=== PATIENT | male | born 1995 | race Caucasian/White ===

== ENCOUNTER 2016-07-07 10:53 | Emergency (ER) | payer OTHER ==
[~2016-07-07] VITALS: Ht 177.8 cm; Wt 145.1 kg
[2016-07-07 11:05] VITALS: BP_SYST 144
--- NOTE | 2016-07-07 11:10 | NUR ---
Patient to ER bed 3 to gown for evaluation. Side rails up. Report given to Dariela WALDRON.
--- NOTE | 2016-07-07 11:29 | NUR ---
care endorsed to Marta WALDRON
--- NOTE | 2016-07-07 11:30 | NUR ---
pt to er aaaox4 c/o lower back pain since , states has gotten worse since past month, pain 6/10 non radiating, denies sob, denies chespt pain, denies n/v/d, denies headache, states he got X Ray done in [place] that showed nothing, but the pain has not resolved with pain meds
--- NOTE | 2016-07-07 11:40 | NUR ---
dr. osorio at bedside examining the pt.
[2016-07-07] MEDS ORDERED: KETOROLAC TROMETHAMINE 60 MG/2 ML VIAL IM ONE (12:00)
[2016-07-07 12:10] VITALS: BP_SYST 131
--- NOTE | 2016-07-07 12:10 | NUR ---
Patient given written and verbal discharge instructions and verbalizes understanding. ER MD dr. osorio discussed with patient the results and treatment provided. Patient in stable condition. ID arm band removed. Rx of norco robaxin motrin given. Patient educated on pain management and to follow up with PMD. Pain Scale 0/10 Opportunity for questions provided and answered.
== END 2016-07-07 12:10 | disposition home or self-care (01) ==
LOC: SED 11:42
DX: M54.5 Low back pain (principal)
CPT/HCPCS: 96372; 99283; J1885

== ENCOUNTER 2016-08-06 11:10 | Emergency (ER) | payer MEDICAID, OTHER ==
[~2016-08-06] VITALS: Ht 177.8 cm; Wt 149.7 kg
[2016-08-06 11:28] VITALS: BP 142/73; PULSE 60; RESP 16; TEMP 98.2; O2SAT 98
--- NOTE | 2016-08-06 11:39 | NUR ---
Patient to ER bed 1 to gown for evaluation. Side rails up. Report given to Akiko WALDRON.
--- NOTE | 2016-08-06 11:45 | NUR ---
Stable, alert and oriented x4. States has had lower back pain since Apr 03, 2016. Denies any injury/fall or known reason for pain. No deformities/swelling/bruising noted. Patient able to ambulate with ease. No other complaints/injuries per patient or noted.
--- NOTE | 2016-08-06 12:08 | NUR ---
Dr. Wolf at bedside
[2016-08-06] MEDS ORDERED: MORPHINE 2 MG/ML INJ. SYRINGE IM ONE (12:15)
[2016-08-06] MEDS ORDERED: KETOROLAC TROMETHAMINE 60 MG/2 ML VIAL IM ONE (12:15)
[2016-08-06] MEDS ORDERED: DEXAMETHASONE SOD PHOSPHATE 10 MG/ML VIAL IM ONE (12:15)
[2016-08-06] MEDS ORDERED: ONDANSETRON 4 MG ODT TAB PO ONE (12:15)
[2016-08-06 12:50] VITALS: BP 129/71; PULSE 67; RESP 16; TEMP 98.2; O2SAT 98
--- NOTE | 2016-08-06 12:50 | NUR ---
Patient given written and verbal discharge instructions and verbalizes understanding. ER MD Dr. Wolf discussed with patient the results and treatment provided. Patient in stable condition. ID arm band removed. Rx of ibuprofen given. Patient educated on pain management and to follow up with PMD. Pain Scale 0/10 Opportunity for questions provided and answered.
== END 2016-08-06 12:50 | disposition home or self-care (01) ==
LOC: SED 11:10
DX: S39.012A Strain of muscle, fascia and tendon of lower back, initial encounter (principal); X58.XXXA Exposure to other specified factors, initial encounter; Y93.89 Activity, other specified; Y99.8 Other external cause status; Y92.89 Other specified places as the place of occurrence of the external cause
CPT/HCPCS: 72110; 96372; 99284; J1100; J1885; J2270; Q0162

== ENCOUNTER 2019-09-28 09:51 | Emergency (ER) | payer MEDICAID ==
[~2019-09-28] VITALS: Ht 175.3 cm; Wt 117.9 kg
[2019-09-28 10:12] VITALS: BP_SYST 158
--- NOTE | 2019-09-28 10:16 | NUR ---
SENT TO [facility]
[2019-09-28] MEDS ORDERED: IBUPROFEN 800 MG TABLET PO ONE (10:45)
--- NOTE | 2019-09-28 12:53 | NUR ---
medicated as order for pain. educated on pain management
[2019-09-28] MEDS ORDERED: IBUPROFEN 800 MG TABLET ONE (13:07)
--- NOTE | 2019-09-28 15:53 | NUR ---
Patient to ER bed 04 to gown for evaluation. Side rails up. Report given to VANITA Landers
--- NOTE | 2019-09-28 15:55 | NUR ---
Patient arrived via POV, AAOx4, and ambulatory with steady gait. Some pain with sitting and prolonged standing. Patient states he was seen at [facility] and was given an RX for norco, miralax, antibiotics, and was told to sit in a warm bath. Patient states nothing is relieving the pain. No blood in toilet with BM and patient has had small passing of stool over the past 2 days. Patient states he doesn't feel constipated. Patient states he has recently lost 45lbs since the start of quarantine and has been eating plenty of fiber and drinking water. Patient states he feels like an almond sized and shaped painful area close to the coccyx region.
--- NOTE | 2019-09-28 16:01 | NUR ---
ER at bedside examining patient.
--- NOTE | 2019-09-28 16:02 | NUR ---
Rectal exam performed by Dr. Simental with Leesa RN at bedside during procedure. Patient tolerated well.
[2019-09-28] MEDS ORDERED: MAGNESIUM CITRATE 300 ML ORAL SOLUTION PO ONE (16:30)
[2019-09-28 16:42] VITALS: BP_SYST 144
--- NOTE | 2019-09-28 16:42 | NUR ---
Patient given written and verbal discharge instructions and verbalizes understanding. ER MD discussed with patient the results and treatment provided. Patient in stable condition. ID arm band removed. Rx not given, but patient was given Magnesium Citrate to take home. Patient educated on pain management and to follow up with PMD. Pain Scale 3/10. Opportunity for questions provided and answered. Medication side effect fact sheet provided.
== END 2019-09-28 16:42 | disposition home or self-care (01) ==
LOC: SED 09:51
DX: K59.00 Constipation, unspecified (principal)
CPT/HCPCS: 74018; 99283